=== PATIENT | female | born 1980 | race Caucasian/White ===

== ENCOUNTER → 2018-09-26 12:04 | Outpatient (CLI) | payer BC, SELFPAY ==
[2018-09-26 14:39] LABS: Anion Gap 10 (5-15); BUN 15 mg/dL (7-18); BUN/Creat Ratio 24.7 RATIO (10-20); Calcium,Total 8.8 mg/dL (8.5-10.1); Chloride 108 mmol/L (98-107); Creatinine, Serum 0.61 mg/dL (0.55-1.02); EST Glomerular Filtration Rate 118 mL/min (>60); Est Glom Filt Rate - Afr Amer 143 mL/min (>60); Glucose 78 mg/dL (74-106); Magnesium 2.3 mg/dL (1.6-2.6); Potassium 4.3 mmol/L (3.5-5.1); Sodium Level 141 mmol/L (136-145)
== END ==
PROVIDERS: Family Provider Family Medicine; PCP Family Medicine; Visit Provider Family Medicine
DX: R07.9 Chest pain, unspecified (principal); R79.0 Abnormal level of blood mineral
CPT/HCPCS: 36415; 80048; 83735

== ENCOUNTER → 2018-11-15 07:40 | Outpatient (CLI) | payer BC, SELFPAY ==
[2018-11-15 10:06] LABS: Anion Gap 8 (5-15); BUN 9 mg/dL (7-18); BUN/Creat Ratio 14.3 RATIO (10-20); Calcium,Total 8.3 mg/dL (8.5-10.1); Chloride 106 mmol/L (98-107); Creatinine, Serum 0.63 mg/dL (0.55-1.02); EST Glomerular Filtration Rate 113 mL/min (>60); Est Glom Filt Rate - Afr Amer 136 mL/min (>60); Glucose 85 mg/dL (74-106); Magnesium 1.9 mg/dL (1.6-2.6); Potassium 4.1 mmol/L (3.5-5.1); Sodium Level 138 mmol/L (136-145)
== END ==
PROVIDERS: Family Provider Family Medicine; PCP Family Medicine; Referring Provider Family Medicine; Visit Provider Family Medicine
DX: E87.6 Hypokalemia (principal); R79.0 Abnormal level of blood mineral
CPT/HCPCS: 36415; 80048; 83735

== ENCOUNTER → 2020-01-29 10:25 | Outpatient (CLI) | payer BC, SELFPAY ==
[2020-01-29 13:08] LABS: Anion Gap 5 (5-15); BUN 11 mg/dL (7-18); BUN/Creat Ratio 18.3 RATIO (10-20); Calcium,Total 8.7 mg/dL (8.5-10.1); Chloride 109 mmol/L (98-107); Cholesterol 225 mg/dL (200); EST Glomerular Filtration Rate 118 mL/min (>60); Est Glom Filt Rate - Afr Amer 143 mL/min (>60); Glucose 88 mg/dL (74-106); High Density Lipoprotein 48 mg/dL; Potassium 3.7 mmol/L (3.5-5.1); Sodium Level 141 mmol/L (136-145); Triglycerides 248 mg/dL; Very Low Density Lipoprotein 50 mg/dL (5-40)
== END ==
PROVIDERS: PCP Family Medicine; Referring Provider Family Medicine; Visit Provider Family Medicine
DX: Z00.00 Encounter for general adult medical examination without abnormal findings (principal)
CPT/HCPCS: 36415; 80048; 80061

== ENCOUNTER → 2020-04-07 09:00 | Outpatient (CLI) | payer BC, SELFPAY ==
[2020-04-07 09:02] LABS: Mucous, Urine 0 SEEN /hpf (<or=2+)
[2020-04-07 10:36] LABS: Erythrocyte Sedimentation Rate 26 mm/hr (0-20)
[2020-04-07 10:38] LABS: Absolute Lymphocyte Count 3.14 X10^3/uL (0.83-4.51); Absolute Neutrophil Count 3.3 X10^3/uL (2.0-7.7); Basophil# 0.05 X10^3/uL; Basophil% 0.7 % (0-1); Eosinophil# 0.24 X10^3/uL; Eosinophils% 3.3 % (0-5); Hemoglobin 12.2 g/dL (12.0-15.0); Lymphocyte # 3.14 X10^3/ul (4.0); Lymphocyte % 43.7 % (19-41); Mean Corp Hgb Conc 32.1 g/dL (32-36); Mean Corpuscular Hgb 27.5 pg (27.0-32.0); Mean Corpuscular Volume 85.8 fL (81-99); Mean Platelet Vol. 11.3 fl (6.2-12.0); Monocyte# 0.43 X10^3/uL; NRBC Flagged by Analyzer 0 % (0-5); Neutrophil # 3.31 X10^3/uL (2.7-7.7); Platelet Count 349 K/mm3 (150-450); RBC Distribution Width CV 12.9 % (11.6-14.6); Red Blood Count 4.43 M/mm3 (4.2-5.4); White Blood Count 7.2 K/mm3 (4.4-11.0)
[2020-04-07 10:41] LABS: Color, Urine Yellow (Yellow); Glucose, Dipstick Normal (Normal); Ketone-Dipstick Negative (Negative); Leukocyte Esterase-Dipstick 25 /ul (Negative); Nitrite-Dipstick Negative (Negative); Occult Blood-Urine 150 /ul (Negative); Protein-Dipstick 15 mg/dl (Negative); Urine Bilirubin Dipstick Negative (Negative); Urine Clarity Clear (Clear); Urine Urobilinogen Normal (Normal)
[2020-04-07 10:48] LABS: Bacteria 2+ /hpf (None Seen); Red Blood Cells-Urine 0-5 SEEN /hpf (0-5); Squamous Epithelial Cells - UA 0-5 SEEN /hpf (5-10); White Blood Cells 5-10 SEEN /hpf (0-5)
[2020-04-07 12:08] LABS: CRP 9.61 mg/L (0.0-3.0)
== END ==
PROVIDERS: PCP Family Medicine; Referring Provider Family Medicine; Visit Provider Family Medicine
DX: R10.9 Unspecified abdominal pain (principal)
CPT/HCPCS: 36415; 81001; 85025; 85652; 86140; 87086; 87088

== ENCOUNTER → 2020-04-17 09:48 | Outpatient (CLI) | payer BC, SELFPAY ==
[2020-04-17 09:52] LABS: Mucous, Urine 0 SEEN /hpf (<or=2+)
[2020-04-17 12:19] LABS: Color, Urine Yellow (Yellow); Glucose, Dipstick Normal (Normal); Ketone-Dipstick Negative (Negative); Leukocyte Esterase-Dipstick 25 /ul (Negative); Nitrite-Dipstick Negative (Negative); Occult Blood-Urine 150 /ul (Negative); Protein-Dipstick 15 mg/dl (Negative); Specific Gravity, Urine 1.025 (1.002-1.030); Urine Bilirubin Dipstick Negative (Negative); Urine Clarity Sl. Cloudy (Clear); Urine Urobilinogen Normal (Normal)
[2020-04-17 12:23] LABS: Erythrocyte Sedimentation Rate 21 mm/hr (0-20)
[2020-04-17 12:29] LABS: Absolute Lymphocyte Count 2.82 X10^3/uL (0.83-4.51); Absolute Neutrophil Count 3.5 X10^3/uL (2.0-7.7); Basophil# 0.06 X10^3/uL; Basophil% 0.9 % (0-1); Eosinophil# 0.26 X10^3/uL; Eosinophils% 3.7 % (0-5); Hematocrit 36.8 % (37-47); Hemoglobin 11.7 g/dL (12.0-15.0); Lymphocyte # 2.82 X10^3/ul (4.0); Lymphocyte % 40.1 % (19-41); Mean Corp Hgb Conc 31.8 g/dL (32-36); Mean Corpuscular Hgb 27.5 pg (27.0-32.0); Mean Corpuscular Volume 86.4 fL (81-99); Mean Platelet Vol. 11.2 fl (6.2-12.0); Monocyte# 0.39 X10^3/uL; Monocyte% 5.5 % (0-10); NRBC Flagged by Analyzer 0 % (0-5); Neutrophil % 49.7 % (47-70); Platelet Count 312 K/mm3 (150-450); RBC Distribution Width CV 13.2 % (11.6-14.6); RBC Distribution Width SD 41.1 fl (35.1-43.9); Red Blood Count 4.26 M/mm3 (4.2-5.4)
[2020-04-17 12:41] LABS: Bacteria 1+ /hpf (None Seen); Red Blood Cells-Urine 10-25 SEEN /hpf (0-5); Squamous Epithelial Cells - UA 0-5 SEEN /hpf (5-10); White Blood Cells 0-5 SEEN /hpf (0-5)
== END ==
PROVIDERS: PCP Family Medicine; Referring Provider Family Medicine; Visit Provider Family Medicine
DX: R10.9 Unspecified abdominal pain (principal)
CPT/HCPCS: 36415; 81001; 85025; 85652; 86140; 87086; 87088

== ENCOUNTER → 2022-06-14 | Outpatient (CLI) | payer OTHER, BC, SELFPAY ==
[2022-06-14 09:34] LABS: Cholesterol 214 mg/dL (200); High Density Lipoprotein 59 mg/dL; Magnesium 2.1 mg/dL (1.6-2.6); T4 Total, Thyroxin 14.3 ug/dL (4.8-13.9); Triglycerides 126 mg/dL; Very Low Density Lipoprotein 25 mg/dL (5-40)
== END | disposition home or self-care (01) ==
LOC: LAB 08:25
PROVIDERS: PCP Family Medicine; Referring Provider Physician Assistant Medical; Visit Provider Physician Assistant Medical
DX: R07.9 Chest pain, unspecified (principal); R53.83 Other fatigue; I49.3 Ventricular premature depolarization
CPT/HCPCS: 36415; 80061; 83735; 84436; 84443; 86141

== ENCOUNTER → 2022-06-15 | Outpatient (CLI) | payer OTHER, BC, SELFPAY | END | disposition home or self-care (01) | LOC: PSN 08:21 | PROVIDERS: PCP Family Medicine; Referring Provider Physician Assistant Medical; Visit Provider Physician Assistant Medical | DX: I49.3 Ventricular premature depolarization (principal); R07.9 Chest pain, unspecified | CPT/HCPCS: 93225; 93226 ==

== ENCOUNTER → 2022-06-17 | Outpatient (CLI) | payer OTHER, BC, SELFPAY ==
--- NOTE | 2022-06-17 13:55 | ECHOD_ITS ---
Reason For Study: Chest Pain Procedure This was a 2D Doppler, Color Flow transthoracic echocardiogram. Exam performed in department. Left Ventricle Normal left ventricle. The left ventricular ejection fraction is 65 %. Normal diastololic function. Right Ventricle Normal right ventricle. Atria The left and right atria are normal. Can not rule out tiny PFO. Mitral Valve Trivial mitral valve insufficiency. Tricuspid Valve Trivial tricuspid valve insufficiency. Unable to estimate RV systolic pressure due to insufficient tricuspid regurgitant envelope. Aortic Valve Normal aortic valve. Pulmonic Valve The pulmonic valve is not well visualized. Great Vessels Normal sized aortic root. Pericardium/Pleural No pericardial effusion. MMode/2D Measurements & Calculations LVIDd: 5.3 cm IVSd: 0.75 cm Ao root diam: 3.4 cm LVIDs: 3.5 cm LVPWd: 0.77 cm LA dimension: 3.3 cm RVDd: 2.8 cm FS: 34.1 % LAV(MOD-bp): 39.9 ml LA A4 area: 14.0 cm2 RA A4 area: 11.5 cm2 LAV(MOD-bp) Indexed: 21.8 ml/m2 LAV(MOD-sp2): 38.9 ml LAV(MOD-sp4): 37.2 ml Time Measurements MV dec time: 0.20 sec Doppler Measurements & Calculations MV E max alcon: 102.6 cm/sec Lat Peak E' Alcon: 12.5 cm/sec Med Peak E' Alcon: 13.2 cm/sec MV A max alcon: 90.4 cm/sec E/E' lat: 8.2 E/E' med: 7.8 MV E/A: 1.1 MV V2 max: 112.2 cm/sec MV P1/2t max alcon: 112.2 cm/sec Ao V2 max: 150.5 cm/sec MV max P.0 mmHg MV P1/2t: 66.9 msec Ao max P.1 mmHg MV V2 mean: 65.1 cm/sec MV dec slope: 491.7 cm/sec2 Ao V2 mean: 103.0 cm/sec MV mean P.0 mmHg MVA(P1/2t): 3.3 cm2 Ao mean P.8 mmHg MV V2 VTI: 25.9 cm Ao V2 VTI: 30.9 cm LV V1 max: 100.7 cm/sec PA V2 max: 110.5 cm/sec LV V1 max P.1 mmHg LV V1 mean P.4 mmHg LV V1 mean: 74.6 cm/sec LV V1 VTI: 21.9 cm ECHO/Echo Complete Interpretation Summary The left ventricular ejection fraction is 65 %. Can not rule out tiny PFO Ordering Physician: Jude Tamayo Referring Physician: Bay Richards Performed By: Lane Singletary RCS
== END | disposition home or self-care (01) ==
LOC: CVS 13:53
PROVIDERS: PCP Family Medicine; Referring Provider Internal Medicine Cardiovascular Disease; Visit Provider Internal Medicine Cardiovascular Disease
DX: R07.9 Chest pain, unspecified (principal)
CPT/HCPCS: 93306

== ENCOUNTER → 2022-06-29 | Outpatient (CLI) | payer OTHER, BC, SELFPAY ==
[2022-06-29 13:39] LABS: Troponin-I HS 3 pg/mL (3.0-54.0)
== END | disposition home or self-care (01) ==
PROVIDERS: PCP Family Medicine; Referring Provider Internal Medicine Cardiovascular Disease; Visit Provider Internal Medicine Cardiovascular Disease
DX: R07.9 Chest pain, unspecified (principal)
CPT/HCPCS: 36415; 84484

== ENCOUNTER 2022-07-04 14:02 | Outpatient (CLI) | payer OTHER, BC, SELFPAY ==
--- NOTE | 2022-07-04 14:03 | CT_ITS ---
STUDY: CARDIAC CALCIUM SCORING - CT CHEST REASON FOR EXAM: Female, 41 years old. Chest pain, family history of CAD OVER READ ONLY TECHNIQUE: Axial non-enhanced images were acquired through the heart for the sole purpose of measuring coronary artery calcium. Individualized dose optimization techniques were used for this CT. COMPARISON: None. FINDINGS: Visualized surrounding anatomy: Normal. Left Main Coronary Artery: 0 Left Anterior Descending Artery: 0 Left Circumflex Artery: 0 Right Coronary Artery: 0 Other: 0 Total Calcium Score: 0 IMPRESSION: A Calcium Score of 0 places the patient in the approximate 0 percentile, based on the [facility] data calculator. Please go to: [email or web address] , for a description of the calculator. Electronically Signed: Damaris Negrete MD at 3:48 EST , INDICATION: Chest pain. COMPARISON: None. TECHNIQUE: Scans were obtained through the thorax without IV contrast. CT scan done according to ALARA (As Low As Reasonably Achievable). FINDINGS: Lungs and pleura: Clear lung wall bilaterally. No acute infiltrates or nodules. No effusions. Mediastinum and pulmonary monae: No mass or adenopathy. Heart and great vessels: Normal heart size. No pericardial effusion. No aneurysms. Skeletal structures and chest wall: Unremarkable. CT/Limited Chest CT Cardiac Only IMPRESSION: Noncontrast CT of the chest is within normal limits. Electronically Signed: Damaris Negrete MD at 3:50 EST ,
[2022-07-04 14:18] VITALS: BP 121/82; PULSE 72; RESP 16; TEMP 37.6; O2SAT 99
[2022-07-04 14:42] VITALS: BP 108/70; PULSE 72
[2022-07-04] MEDS: Nitroglycerin SL (ED/IMG/CATH) 0.4 MG TABLET SL (14:42)
[2022-07-04 14:50] VITALS: BP 109/70; PULSE 70; RESP 16; O2SAT 97
--- NOTE | 2022-07-04 16:37 | CCTA.WCONT ---
CCTA w/Cont Coronary Arteries Date of Study:: 07/04/22 Chest pain Consent:: Informed consent was obtained High-resolution computed tomographic imaging of the chest was performed on 07/04/2022 with particular attention paid to the coronary arteries. Images from the examination were analyzed for the presence and extent of coronary artery calcification using coronary calcification quantification software. The patient tolerated the procedure well and there were no complications. The patient also received intravenous contrast agent for definition of the coronary arteries. The images were reconstructed and displayed. There was mild to moderate motion artifact noted. LEFT MAIN CORONARY ARTERY: This arose from the left coronary cusp with no significant stenosis noted. The vessel bifurcates into a left anterior descending artery and left circumflex artery. Coronary calcium score was 0 [] LEFT ANTERIOR DESCENDING CORONARY ARTERY: Left anterior descending artery did not demonstrate any significant stenosis present. Coronary calcium score was noted to be 0 [] LEFT CIRCUMFLEX CORONARY ARTERY: The left circumflex artery was a nondominant vessel with no significant stenosis noted. It was a small vessel coronary calcium score was 0 [] RIGHT CORONARY ARTERY: Dominant vessel with no significant calcification present. No significant stenosis was noted. Coronary calcium score was 0 [] [] CORONARY CALCIUM SCORE: 0 [] The total Agatston score noted was noted to be 0 with a percentile ranking of 50%. The above suggests no identifiable atherosclerotic plaque and very low cardiovascular risk.
== END 2022-07-04 23:59 | disposition home or self-care (01) ==
LOC: CT 14:02
PROVIDERS: PCP Family Medicine; Referring Provider Internal Medicine Cardiovascular Disease; Visit Provider Internal Medicine Cardiovascular Disease
DX: R07.9 Chest pain, unspecified (principal); R79.82 Elevated C-reactive protein (CRP); E78.5 Hyperlipidemia, unspecified; Z82.3 Family history of stroke
CPT/HCPCS: 75571; 75574; 76380; Q9967

== ENCOUNTER → 2023-01-18 | Outpatient (CLI) | payer BC, SELFPAY ==
[2023-01-18 09:12] LABS: Absolute Lymphocyte Count 2.59 X10^3/uL (0.83-4.51); Absolute Neutrophil Count 4.4 X10^3/uL (2.0-7.7); Basophil# 0.08 X10^3/uL; Basophil% 1.1 % (0-1); Eosinophil# 0.23 X10^3/uL; Erythrocyte Sedimentation Rate 22 mm/hr (0-30); Hematocrit 38.7 % (37-47); Lymphocyte # 2.59 X10^3/ul (0.83-4.51); Mean Corpuscular Hgb 26.7 pg (27.0-32.0); Mean Corpuscular Volume 86.2 fL (81-99); Mean Platelet Vol. 10.3 fl (6.2-12.0); Monocyte# 0.35 X10^3/uL; Monocyte% 4.6 % (0-10); NRBC Flagged by Analyzer 0 % (0-5); Neutrophil # 4.35 X10^3/uL (2.7-7.7); Neutrophil % 57.2 % (47-70); Platelet Count 399 K/mm3 (150-450); RBC Distribution Width SD 40.5 fl (35.1-43.9); Red Blood Count 4.49 M/mm3 (4.2-5.4); White Blood Count 7.6 K/mm3 (4.4-11.0)
[2023-01-18 09:36] LABS: Anion Gap 4 (5-15); BUN 13 mg/dL (7-18); BUN/Creat Ratio 15.9 RATIO (10-20); Calcium,Total 9.1 mg/dL (8.5-10.1); Chloride 111 mmol/L (98-107); Creatinine, Serum 0.82 mg/dL (0.55-1.02); EST Glomerular Filtration Rate 82 mL/min (>60); Est Glom Filt Rate - Afr Amer 99 mL/min (>60); Ferritin 38 ng/mL (8-252); Glucose 101 mg/dL (74-106); Iron 54 ug/dL (50-170); Potassium 4.3 mmol/L (3.5-5.1); Sodium Level 141 mmol/L (136-145); Thyroid Stim Hormone (TSH) 1.19 uIU/mL (0.358-3.74)
[2023-01-18 09:40] LABS: Vitamin B12 376 pg/mL (211-911); Vitamin D,25 Hydroxy 43.1 ng/mL
== END | disposition home or self-care (01) ==
PROVIDERS: PCP Family Medicine; Visit Provider Family Medicine
DX: R79.82 Elevated C-reactive protein (CRP) (principal); R53.83 Other fatigue; J40 Bronchitis, not specified as acute or chronic; G43.909 Migraine, unspecified, not intractable, without status migrainosus
CPT/HCPCS: 36415; 80048; 82306; 82533; 82607; 82728; 83540; 84443; 85025; 85652; 86140

== ENCOUNTER → 2023-01-23 | Outpatient (CLI) | payer BC, SELFPAY ==
[2023-01-23 11:17] LABS: CRP 7.38 mg/L (0.0-3.0)
[2023-01-23 11:26] LABS: Internal QC Validated? YES +Cl - CLEAR BKGD; Monotest Negative (Negative)
[2023-01-25 16:09] LABS: Lyme IgG P18 Ab Absent (.); Lyme IgG P23 Ab Absent (.); Lyme IgG P28 Ab Absent (.); Lyme IgG P30 Ab Absent (.); Lyme IgG P39 Ab Absent (.); Lyme IgG P41 Ab Absent (.); Lyme IgG P45 Ab Absent (.); Lyme IgG P58 Ab Absent (.); Lyme IgG P66 Ab Absent (.); Lyme IgG P93 Ab Absent (.); Lyme IgG WB Interpretation Negative (.); Lyme IgM P23 Ab Absent (.); Lyme IgM P39 Ab Absent (.); Lyme IgM P41 Ab Absent (.); Lyme IgM WB Interpretation Negative (.)
== END | disposition home or self-care (01) ==
LOC: LAB 10:28
PROVIDERS: PCP Family Medicine; Referring Provider Physician Assistant Medical; Visit Provider Physician Assistant Medical
DX: R79.82 Elevated C-reactive protein (CRP) (principal); R53.83 Other fatigue
CPT/HCPCS: 36415; 86140; 86308; 86617

== ENCOUNTER → 2023-02-23 | Outpatient (CLI) | payer BC, SELFPAY ==
--- NOTE | 2023-02-23 12:56 | VDLE_ITS ---
Reason For Study: leg pain RIGHT LEFT GSV is normal. GSV is normal. CFV is compressible, spontaneous, phasic, CFV is compressible, spontaneous, phasic, competent and demonstrates normal competent, and demonstrates normal augmentation. augmentation. FV is compressible, spontaneous, phasic, FV is compressible, spontaneous, phasic, competent and demonstrates normal competent and demonstrates normal augmentation. augmentation. POP V is compressible, spontaneous, phasic, POP V is compressible, spontaneous, phasic, competent and demonstrates normal competent and demonstrates normal augmentation. augmentation. T/P Trunk is compressible. T/P Trunk is compressible. PTV is compressible. PTV is compressible. RT PerV is compressible. LT PerV is compressible. Procedure This is a venous duplex using B-mode, color flow and spectral Doppler. Exam performed in department. The exam was diagnostic. A preliminary report was called and/or faxed to Yasmeen Chan. VL/Venous Duplex US - Epi Extrem Interpretation Summary Deep veins of the bilateral lower extremities are patent and compressible segme ntally. There is no evidence of bilateral lower extremity deep vein thrombosis. The bilateral great saphenous veins appear patent and compressible segmentally. Ordering Physician: Yasmeen Chan Performed By: Ramy Pugh RVT
== END | disposition home or self-care (01) ==
LOC: CVS 12:56
PROVIDERS: PCP Family Medicine; Referring Provider Nurse Practitioner Gerontology; Visit Provider Nurse Practitioner Gerontology
DX: M79.661 Pain in right lower leg (principal); Z78.9 Other specified health status; Z82.3 Family history of stroke; R79.82 Elevated C-reactive protein (CRP)
CPT/HCPCS: 93970

== ENCOUNTER → 2023-05-03 | Outpatient (CLI) | payer BC, SELFPAY ==
[2023-05-03 11:32] LABS: Anion Gap 5 (5-15); BUN 16 mg/dL (7-18); BUN/Creat Ratio 19.3 RATIO (10-20); Calcium,Total 9.1 mg/dL (8.5-10.1); Chloride 109 mmol/L (98-107); Creatinine, Serum 0.83 mg/dL (0.55-1.02); EST Glomerular Filtration Rate 80 mL/min (>60); Est Glom Filt Rate - Afr Amer 97 mL/min (>60); Glucose 108 mg/dL (74-106); Potassium 3.9 mmol/L (3.5-5.1); Sodium Level 139 mmol/L (136-145)
[2023-05-03 11:37] LABS: Vitamin B12 555 pg/mL (211-911)
== END | disposition home or self-care (01) ==
LOC: LAB 09:45
PROVIDERS: PCP Family Medicine; Referring Provider Nurse Practitioner Gerontology; Visit Provider Nurse Practitioner Gerontology
DX: E53.8 Deficiency of other specified B group vitamins (principal); M79.10 Myalgia, unspecified site; R61 Generalized hyperhidrosis; R00.2 Palpitations
CPT/HCPCS: 36415; 80048; 82607

== ENCOUNTER → 2023-09-15 | Outpatient (CLI) | payer BC, SELFPAY ==
[2023-09-15 09:54] LABS: Hemoglobin 12.3 g/dL (12.0-15.0); Mean Corp Hgb Conc 31.5 g/dL (32-36); Mean Corpuscular Hgb 26.6 pg (27.0-32.0); Mean Corpuscular Volume 84.4 fL (81-99); Mean Platelet Vol. 10.6 fl (6.2-12.0); Platelet Count 356 K/mm3 (150-450); RBC Distribution Width CV 13.3 % (11.6-14.6); RBC Distribution Width SD 41.3 fl (35.1-43.9); Red Blood Count 4.62 M/mm3 (4.2-5.4); White Blood Count 8.3 K/mm3 (4.4-11.0)
[2023-09-15 10:08] LABS: D-Dimer Quantitative (DVT/PE) 0.33 FEU/ug/m (0.27-0.49)
[2023-09-15 10:36] LABS: Anion Gap 1 (5-15); BUN 17 mg/dL (7-18); BUN/Creat Ratio 20.6 RATIO (10-20); Calcium,Total 9.4 mg/dL (8.5-10.1); Chloride 110 mmol/L (98-107); Creatinine, Serum 0.83 mg/dL (0.55-1.02); EST Glomerular Filtration Rate 80 mL/min (>60); Est Glom Filt Rate - Afr Amer 97 mL/min (>60); Glucose 93 mg/dL (74-106); Sodium Level 136 mmol/L (136-145); Thyroid Stim Hormone (TSH) 0.99 uIU/mL (0.358-3.74); Troponin-I HS < 3 pg/mL (3.0-54.0)
== END | disposition home or self-care (01) ==
LOC: LAB 09:36
PROVIDERS: PCP Family Medicine; Referring Provider Internal Medicine Cardiovascular Disease; Visit Provider Internal Medicine Cardiovascular Disease
DX: R11.0 Nausea (principal); R61 Generalized hyperhidrosis; R00.2 Palpitations; R79.82 Elevated C-reactive protein (CRP); R07.9 Chest pain, unspecified; R53.83 Other fatigue; Z78.9 Other specified health status
CPT/HCPCS: 36415; 80048; 84443; 84484; 85027; 85379

== ENCOUNTER → 2024-03-07 | Outpatient (CLI) | payer BC, SELFPAY ==
[2024-03-07 09:11] LABS: AST(SGOT) 17 U/L (15-37); Alanine Aminotransfer ALT/SGPT 22 U/L (13-56); Albumin, Serum 3.3 g/dL (3.2-5.0); Alkaline Phosphatase 185 U/L (45-117); Bilirubin, Direct 0.08 mg/dL (0.00-0.30); Cholesterol 221 mg/dL (200); Globulin 4.5 g/dL (2.2-4.2); High Density Lipoprotein 60 mg/dL; Protein, Total 7.8 g/dL (6.4-8.2); Triglycerides 161 mg/dL; Very Low Density Lipoprotein 32 mg/dL (5-40)
== END | disposition home or self-care (01) ==
LOC: LAB 07:54
PROVIDERS: PCP Family Medicine; Visit Provider Internal Medicine Cardiovascular Disease
DX: Z13.220 Encounter for screening for lipoid disorders (principal); Z82.49 Family history of ischemic heart disease and other diseases of the circulatory system; Z82.3 Family history of stroke; E78.5 Hyperlipidemia, unspecified
CPT/HCPCS: 36415; 80061; 80076

== ENCOUNTER → 2024-04-19 | Outpatient (CLI) | payer BC, SELFPAY ==
[2024-04-19 13:50] LABS: Anion Gap 6 (5-15); BUN 11 mg/dL (7-18); BUN/Creat Ratio 12.9 RATIO (10-20); Calcium,Total 9.4 mg/dL (8.5-10.1); Chloride 107 mmol/L (98-107); Creatinine, Serum 0.86 mg/dL (0.55-1.02); EST Glomerular Filtration Rate 77 mL/min (>60); Est Glom Filt Rate - Afr Amer 93 mL/min (>60); Glucose 120 mg/dL (74-106); Potassium 3.7 mmol/L (3.5-5.1); Sodium Level 138 mmol/L (136-145)
== END | disposition home or self-care (01) ==
LOC: LAB 12:27
PROVIDERS: PCP Family Medicine; Referring Provider Physician Assistant Medical; Visit Provider Physician Assistant Medical
DX: I10 Essential (primary) hypertension (principal)
CPT/HCPCS: 36415; 80048

== ENCOUNTER → 2025-02-04 | Outpatient (CLI) | payer BC, SELFPAY ==
[2025-02-04 12:13] LABS: ALB/GLOB Ratio 1.3 RATIO (0.9-2.4); AST(SGOT) 24 U/L (<=31); Alanine Aminotransfer ALT/SGPT 25 U/L (<=34); Alkaline Phosphatase 183 U/L (35-104); Anion Gap 11 (5-15); BUN 10 mg/dL (4-19); BUN/Creat Ratio 15.1 RATIO (10-20); Carbon Dioxide 23.6 mmol/L (21.0-32.0); Chloride 104 mmol/L (98-108); Cholesterol 192 mg/dL (<=200); Creatinine, Serum 0.68 mg/dL (0.70-1.20); EST Glomerular Filtration Rate 111 (>60); Globulin 3.2 g/dL (2.2-4.2); Glucose 88 mg/dL (70-99); High Density Lipoprotein 48 mg/dL; Low Density Lipoprotein Calc. 119 mg/dL; Potassium 4.2 mmol/L (3.3-5.1); Protein, Total 7.1 g/dL (5.9-8.4); Sodium Level 138 mmol/L (133-145); Thyroid Stim Hormone (TSH) 0.941 uIU/mL (0.300-4.200); Total Bilirubin 0.35 mg/dL (0.00-1.30); Triglycerides 125 mg/dL; Very Low Density Lipoprotein 25 mg/dL (5-40); cholesterol:hdl ratio screen 4.03
== END | disposition home or self-care (01) ==
LOC: LAB 10:35
PROVIDERS: PCP Family Medicine; Referring Provider Internal Medicine Cardiovascular Disease; Visit Provider Internal Medicine Cardiovascular Disease
DX: R00.2 Palpitations (principal); I49.3 Ventricular premature depolarization; R53.83 Other fatigue; R07.9 Chest pain, unspecified; E78.5 Hyperlipidemia, unspecified; I10 Essential (primary) hypertension; Z13.220 Encounter for screening for lipoid disorders
CPT/HCPCS: 36415; 80053; 80061; 84443